=== PATIENT | female | born 1980 | race Caucasian/White ===

== ENCOUNTER 2017-07-15 23:50 | Emergency (ER) | payer SELFPAY ==
[~2017-07-15] VITALS: Ht 144.8 cm; Wt 51.0 kg
[2017-07-15 23:51] VITALS: Ht 144.8 cm; Wt 51.0 kg
[2017-07-16] MEDS ORDERED: METR500T PO (03:27)
--- NOTE | 2017-07-16 03:33 | ERD ---
ER Documentation Chief Complaint Chief Complaint c/o vaginal swelling and pain x 3 days. HPI Otherwise healthy 37-year-old female presents with a chief complaint of red pruritic vaginal discomfort with white discharge. Symptoms started 3 days ago. Claims that she is monogamous with her who has no symptoms. Denies fever, chills, similar symptoms in past, taken any medications to relieve the symptoms or odor. Patient has no other complaints and describes no other associated manifestations. Nursing notes have been reviewed and are consistent with history given. ROS All systems reviewed and are negative except as per history of present illness. Medications Home Meds Active Scripts Nitrofurantoin Monohyd Macrocr* (Macrobid*) 100 Mg Capsr, 100 MG PO HS for 7 Days, CAP Prov:ERIN TAPIA PA-C 07/16/17 Metronidazole* (Flagyl*) 500 Mg Tablet, 500 MG PO TID for 10 Days, TAB Prov:ERIN TAPIA PA-C 07/16/17 Allergies Allergies: Coded Allergies: No Known Allergy (Unverified , 06/02/14) PMhx/Soc Medical and Surgical Hx: pt denies Surgical Hx History of Surgery: No Anesthesia Reaction: No Hx Neurological Disorder: No Hx Respiratory Disorders: No Hx Cardiac Disorders: No Hx Psychiatric Problems: No Hx Miscellaneous Medical Probl: Yes (Vaginal Yeast Infection) Hx Alcohol Use: No Hx Substance Use: No Hx Tobacco Use: No Smoking Status: Never smoker Physical Exam Vitals Vital Signs Date Time Temp Pulse Resp B/P Pulse Ox O2 Delivery O2 Flow Rate FiO2 07/15/17 23:51 97.8 68 18 153/62 97 Physical Exam Const: Well-appearing 37-year-old female in no acute distress Head: Atraumatic Eyes: Normal Conjunctiva ENT: Normal External Ears, Nose and Mouth. Neck: Full range of motion..~ No meningismus. Resp: Clear to auscultation bilaterally Cardio: Regular rate and rhythm, no murmurs Abd: Soft, non tender, non distended. Normal bowel sounds Skin: No petechiae or rashes Back: No midline or flank tenderness Ext: No cyanosis, or edema Neur: Awake and alert Psych: Normal Mood and Affect Pelvic exam: Red and inflamed labia majora. White discharge without odor. Vaginal bell within normal limits. No cervical motion tenderness. No adnexal tenderness or masses palpated. Results 24 hrs Laboratory Tests Test 07/16/17 03:10 Urine Color YELLOW Urine Clarity CLOUDY Urine pH 5.0 Urine Specific [place] 1.021 Urine Ketones 1+mg/dL Urine Nitrite NEGATIVEmg/dL Urine Bilirubin NEGATIVEmg/dL Urine Urobilinogen NEGATIVEmg/dL Urine Leukocyte Esterase 2+Monica/ul Urine Microscopic RBC 0/HPF Urine Microscopic WBC 8/HPF Urine Squamous Epithelial Cells FEW/HPF Urine Mucus MODERATE/HPF Urine Hemoglobin 2+mg/dL Urine Glucose NEGATIVEmg/dL Urine Total Protein 1+mg/dl Procedures/MDM Otherwise healthy well-appearing 37-year-old female in no acute distress presenting with signs and symptoms most consistent with vaginitis. Urine negative. Urinalysis +Leuks. Gonorrhea, chlamydia, and RPR were ordered.Most likely diagnosis is bacterial vaginitis versus trichomonas. Cultures were obtained. Patient will be treated with metronidazole. I have little suspicion for PID, acute abdomen, or other serious bacterial infection. I have spoke with the patient regarding their condition and future management. They have verbally responded that they understand their status and treatment plan. The patients vitals are stable, and their current condition is appropriate for discharge. The patient will be given discharge instructions with return precautions. Discharge medications: Metronidazole twice daily 10 days. Macrobid x7 days. Departure Diagnosis: Primary Impression: Female genital symptoms Condition: Stable Patient Instructions: Preventing Vaginitis Additional Instructions: Ferdinand un seguimiento con [facility] PCP dentro de los prximos 1-3 [place] para jean-pierre evaluaci n ms completa y jean-pierre posible derivacin a un especialista. Devuelva el departamento de emergencia inmediatamente si los sntomas empeoran o [place]. Si tiene alguna pregunta con respecto a los medicamentos, consulte con swanson farmac utico o con nosotros antes de salir. Si se producen reacciones adversas mientras shana kitty medicamentos, suspenda el tratamiento y regrese inmediatamente al servicio de urgencias. [place] kitty medicamentos segn las indicaciones y complete el curso completo del tratamiento. ERIN TAPIA PA-C Jul 16, 2017 03:33
[2017-07-16 04:05] LABS: ADD UMIC YES; UR ASCORBIC ACID NEGATIVE (NEGATIVE); UR BILIRUBIN (Dip) NEGATIVE (NEGATIVE); UR BLOOD (Dip) 2+ mg/dL (NEGATIVE); UR CLARITY CLOUDY (CLEAR); UR COLOR YELLOW (YELLOW); UR GLUCOSE (Dip) NEGATIVE (NEGATIVE); UR KETONES (Dip) 1+ mg/dL (NEGATIVE); UR LEUKOCYTE ESTERASE (Dip) 2+ Leu/ul (NEGATIVE); UR MUCUS MODERATE /HPF (NONE SEEN); UR NITRITE (Dip) NEGATIVE (NEGATIVE); UR RBC 0 /HPF (0-5); UR SPECIFIC GRAVITY (Dip) 1.021 (1.003-1.030); UR SQUAMOUS EPITHELIAL CELL FEW /HPF (FEW); UR TOTAL PROTEIN (Dip) 1+ mg/dl (NEGATIVE); UR UROBILINOGEN (Dip) NEGATIVE (NEGATIVE)
[2017-07-16] MEDS ORDERED: NITR-58 PO (04:12)
[2017-07-16 04:15] VITALS: BP 134/70; PULSE 70; RESP 16
== END 2017-07-16 04:16 | disposition home or self-care (01) ==
LOC: FTE 23:50
DX: R10.2 Pelvic and perineal pain (principal)
CPT/HCPCS: 81001; 87210; 87591; 99284